=== PATIENT | female | born 1945 | race African-American/Black ===

== ENCOUNTER 2024-07-29 18:53 | Emergency (ER) | payer OTHER ==
[~2024-07-29] VITALS: Ht 167.6 cm; Wt 92.0 kg
[2024-07-29 18:57] VITALS: O2SAT 98
[2024-07-29] MEDS: ASPIRIN 81MG EC TABLET PO ONE (20:38)
[2024-07-29] MEDS: CLOPIDOGREL 75MG TABLET PO ONE (20:38)
[2024-07-29 20:45] LABS: BASOPHILS % 0.3 % (0.0-2.0); EOSINOPHILS % 0.8 % (0.0-5.0); HEMATOCRIT. 43.4 % (36.0-48.0); HEMOGLOBIN. 14.6 g/dL (12.0-16.0); LYMPHOCYTES % 8.1 % (20.0-50.0); MEAN CORPUSCULAR HEMOGLOBIN 31.1 pg (28.0-32.0); MEAN CORPUSCULAR HGB CONC 33.8 g/dL (31.0-37.0); MEAN CORPUSCULAR VOLUME 92.2 fL (81.0-99.0); MONOCYTES % 5.8 % (2.0-8.0); PLATELET 269 x1000/uL (130-400); RED BLOOD CELL COUNT 4.71 mill/uL (4.2-5.4); RED CELL DISTRIBUTION WIDTH 13.5 % (11.6-14.6); WHITE BLOOD COUNT 11.4 x1000/uL (4.5-11.0)
[2024-07-29 20:52] LABS: CHLORIDE 110 mEq/L (98-107); POTASSIUM 3.5 mEq/L (3.5-5.1); SODIUM 141 mEq/L (136-145)
[2024-07-29 20:53] LABS: CALCIUM 9.5 mg/dL (8.7-10.4); CARBON DIOXIDE 23 mEq/L (21-32)
[2024-07-29 20:58] LABS: CREATININE 0.9 mg/dL (0.6-1.0); GLUCOSE 129 mg/dL (70-105); UREA NITROGEN BLOOD 9 mg/dL (9-23)
[2024-07-29 20:59] LABS: TROPONIN I HIGH SENSITIVITY 13 ng/L (3.0-34)
[2024-07-29 21:02] LABS: ETHANOL BLOOD < 10 mg/dL (<10)
[2024-07-29 21:09] LABS: PROTHROMBIN TIME 10.8 sec (9.6-11.0)
[2024-07-29] MEDS ORDERED: GUAIFENESIN 200MG/10ML SUGAR FREE UDC PO PRN (21:15)
[2024-07-29] MEDS ORDERED: IPRATROPIUM/ALBUTEROL 0.5-3(2.5)MG/3ML NEB HHN PRN (21:15)
[2024-07-29] MEDS ORDERED: DOCUSATE SODIUM 100MG CAPSULE PO PRN (21:15)
[2024-07-29] MEDS ORDERED: MAGNESIUM/ALUMINUM HYDROXIDE/SIMETHICONE 30ML UDC PO PRN (21:15)
[2024-07-29] MEDS ORDERED: ONDANSETRON HCL 4MG/2ML INJ IV PRN (21:15)
[2024-07-29] MEDS ORDERED: CLONIDINE 0.1MG TABLET PO PRN (21:15)
[2024-07-29] MEDS ORDERED: ACETAMINOPHEN 325MG TABLET PO PRN ×2 (21:15)
[2024-07-29] MEDS: ENOXAPARIN 40MG/0.4ML SYR SUBCUT SCH (22:41)
[2024-07-29 23:50] VITALS: BP 148/75; PULSE 73; RESP 14; TEMP 36.94740; O2SAT 96
[2024-07-30] MEDS ORDERED: IOHEXOL-350 100 ML BOTTLE ONE (00:35)
[2024-07-30] MEDS ORDERED: LEVOTHYROXINE SODIUM 100MCG TABLET PO SCH (07:50)
[2024-07-30] MEDS ORDERED: CLOPIDOGREL 75MG TABLET PO SCH (09:00)
[2024-07-30] MEDS ORDERED: AMLODIPINE 5MG TABLET PO SCH (09:00)
[2024-07-30] MEDS ORDERED: ASPIRIN 81MG EC TABLET PO SCH (09:00)
[2024-07-30] MEDS ORDERED: ATORVASTATIN CALCIUM 40MG TABLET PO SCH (21:00)
== END 2024-07-29 23:50 | disposition short-term general hospital (02) ==
LOC: ER 18:53 → EDBEDREQ 20:24 → EDBEDREQTM 20:24 → ER 23:50
DX: I63.9 Cerebral infarction, unspecified (principal); I10 Essential (primary) hypertension
CPT/HCPCS: 80048; 80320; 83036; 85025; 85610; 84484; 36415; 71045; 70496; 70498; 70450; 93005; 96372; 99291; Q9967; J1650; G0480